=== PATIENT | male | born 1985 | race Caucasian/White ===

== ENCOUNTER 2020-07-20 18:10 | Emergency (ER) | payer OTHER ==
[~2020-07-20] VITALS: Ht 175.3 cm; Wt 81.7 kg
[2020-07-20] MEDS ORDERED: ADDERALL 10 MG10 MG PO (18:22)
[2020-07-20 19:06] VITALS: BP 118/60
== END 2020-07-20 19:07 | disposition home or self-care (01) ==
LOC: M.ERS 18:10
DX: S61.412A Laceration without foreign body of left hand, initial encounter (principal); W45.8XXA Other foreign body or object entering through skin, initial encounter; Y93.89 Activity, other specified; Y92.89 Other specified places as the place of occurrence of the external cause; Y99.8 Other external cause status